=== PATIENT | male | born 1985 | race Caucasian/White ===

== ENCOUNTER 2018-05-19 09:57 | Emergency (ER) | payer SELFPAY ==
[~2018-05-19] VITALS: Ht 180.3 cm; Wt 102.1 kg
[2018-05-19 10:00] VITALS: BP_SYST 128
[2018-05-19 11:45] VITALS: BP_SYST 128
== END 2018-05-19 11:45 | disposition home or self-care (01) ==
LOC: SED 09:57
DX: S20.311A Abrasion of right front wall of thorax, initial encounter (principal); R03.0 Elevated blood-pressure reading, without diagnosis of hypertension; W50.1XXA Accidental kick by another person, initial encounter; Y93.89 Activity, other specified; Y92.89 Other specified places as the place of occurrence of the external cause; Y99.8 Other external cause status
CPT/HCPCS: 71045; 99283

== ENCOUNTER 2019-11-28 20:35 | Emergency (ER) | payer MEDICAID ==
[~2019-11-28] VITALS: Ht 180.3 cm; Wt 102.1 kg
[2019-11-28 20:57] VITALS: BP_SYST 127
--- NOTE | 2019-11-28 21:24 | NUR ---
Patient to ER bed 7 to gown for evaluation. Side rails up.
--- NOTE | 2019-11-28 21:25 | NUR ---
Patient complains of cough x 3 days. Pt denies N/V, fever but complains of chest discomfort. NO other injuries/complaints per patient or noted.
--- NOTE | 2019-11-28 21:30 | NUR ---
ER Dr. Marvin at bedside examining patient.
[2019-11-28 21:48] VITALS: BP_SYST 124
--- NOTE | 2019-11-28 21:48 | NUR ---
Patient given written and verbal discharge instructions and verbalizes understanding. ER MD discussed with patient the results and treatment provided. Patient in stable condition. ID arm band removed. Rx of Promethazine, Azithromycin, Prednisone given. Patient educated on pain management and to follow up with PMD. Pain Scale 0. Opportunity for questions provided and answered. Medication side effect fact sheet provided.
== END 2019-11-28 21:48 | disposition home or self-care (01) ==
LOC: SED 20:35
DX: J40 Bronchitis, not specified as acute or chronic (principal)
CPT/HCPCS: 71046-TC; 99283

== ENCOUNTER 2020-09-14 10:08 | Emergency (ER) | payer MEDICAID ==
[~2020-09-14] VITALS: Ht 180.3 cm; Wt 104.3 kg
[2020-09-14 10:22] VITALS: BP_SYST 135
--- NOTE | 2020-09-14 10:22 | NUR ---
Patient to ER bed 4 to gown for evaluation. Side rails up.
--- NOTE | 2020-09-14 10:25 | NUR ---
ER at bedside examining patient.
--- NOTE | 2020-09-14 10:25 | NUR ---
Pt resting in [facility] [place] at this time, VSS, no distress noted. Pt came to ER for anxiety, states it began last night at 0300 after an argument. Pt appears comfortable states he is not experiencing SOB but is anxious and did not want to drive to [place] for work in this state.
[2020-09-14 11:10] VITALS: BP_SYST 134
--- NOTE | 2020-09-14 11:10 | NUR ---
Patient given written and verbal discharge instructions and verbalizes understanding. ER MD discussed with patient the results and treatment provided. Patient in stable condition. ID arm band removed. Rx of ATIVAN given. Patient educated on pain management and to follow up with PMD. Pain Scale 0/10 . Opportunity for questions provided and answered. Medication side effect fact sheet provided.
== END 2020-09-14 11:10 | disposition home or self-care (01) ==
LOC: SED 10:08
DX: F41.9 Anxiety disorder, unspecified (principal); R06.4 Hyperventilation
CPT/HCPCS: 71045; 93005; 99283

== ENCOUNTER 2022-01-18 08:42 | Emergency (ER) | payer BC, MEDICAID ==
[~2022-01-18] VITALS: Ht 180.3 cm; Wt 105.2 kg
[2022-01-18 08:56] VITALS: BP_SYST 141
--- NOTE | 2022-01-18 09:00 | NUR ---
Patient to ER bed 6 to gown for evaluation. Side rails up. Report given to Jose Juan BARONE.
[2022-01-18] MEDS ORDERED: IBUP-1971 PO (10:11)
[2022-01-18] MEDS ORDERED: HYDR-3917 PO (10:11)
[2022-01-18 10:27] VITALS: BP_SYST 133
--- NOTE | 2022-01-18 10:29 | NUR ---
Patient given written and verbal discharge instructions and verbalizes understanding. YANI crowder MD discussed with patient the results and treatment provided. Patient in stable condition. ID arm band removed. Rx of hydrocodone, motrin given. Patient educated on pain management and to follow up with PMD. Pain Scale 8. Opportunity for questions provided and answered. Medication side effect fact sheet provided.
== END 2022-01-18 11:32 | disposition home or self-care (01) ==
LOC: SED 08:42
DX: S20.219A Contusion of unspecified front wall of thorax, initial encounter (principal); Z79.899 Other long term (current) drug therapy; W18.39XA Other fall on same level, initial encounter; Y93.89 Activity, other specified; Y92.89 Other specified places as the place of occurrence of the external cause; Y99.8 Other external cause status
CPT/HCPCS: 71045; 93005; 99283